=== PATIENT | male | born 1990 | race Caucasian/White ===

== ENCOUNTER 2018-07-23 13:28 | Emergency (ER) | payer OTHER, MEDICAID ==
[2018-07-23] MEDS ORDERED: TDAP ADULT 0.5 ML INJ (BOOSTRIX) IM ONE (13:50)
--- NOTE | 2018-07-23 13:52 | EDPHY ---
H & P Time Seen by Provider: 07/23/18 13:48 HPI/ROS: HPI: This is a 28-year-old male who presents with Chief Complaint: Workman's Comp. Splinter under right middle finger Location: Right middle finger Quality: Splinter Duration: Prior to arrival Signs and Symptoms: No bleeding, no radiation, no numbness, no weakness, no tingling, no incontinence, no decreased range of motion, no swelling, no pain, no fever Timing: Acute Severity: Mild Context: Patient is right-hand dominant, works at [employer], presents with accidentally getting a piece of bamboo 2 stuck under his right middle fingernail. Patient reports that he was unable to remove it. He reports mild discomfort when touching the area. Denies bleeding, radiation, weakness, decreased range of motion. Unsure of tetanus status. Modifying Factors: Attempt at removal but unsuccessful Comment: ROS: A comprehensive 10 system review of systems is otherwise negative aside from elements mentioned in the history of present illness. MEDICAL/SURGICAL/SOCIAL HISTORY: Medical history: Generally healthy. Does not take any regular medications. Surgical history: Denies Social history: Employed. Current every day smoker. CONSTITUTIONAL: Well-developed, well-nourished, adult white male, awake and alert, no obvious distress HEENT: Atraumatic and normocephalic. NECK: supple, no midline tenderness, flexion 45 degrees, extension 45 degrees, right and left lateral flexion 45 degrees. No meningismus. Cardiovascular: Normal S1/S2, regular rate, regular rhythm, without murmur rub or gallop. PULMONARY/CHEST: Symmetrical and nontender. Clear to auscultation bilaterally. Good air movement. No accessory muscle usage. ABDOMEN: Soft, nondistended, nontender. EXTREMITIES: 2/2 pulses, strength 5/5, right middle fingernail at the distal tip shows approximately 1 mm piece of bamboo; no bleeding. DIP/PIP/MCP flexion/ extension intact with good light touch sensation. no deformities, no clubbing, no cyanosis or edema. NEUROLOGICAL: no focal neuro deficits. GCS 15. Light touch sensation intact. SKIN: Warm and dry, well tattoos covering body, no erythema. no rash. Good capillary refill. Source: Patient Exam Limitations: No limitations Medical Decision Making Procedures: Procedure: Foreign body removal from under right middle fingernail. Anesthesia: None required After verbal consent was obtained, the bamboo splinter was removed from underneath the right middle fingernail. The foreign body was removed manually with forceps under direct visualization. There were no complications. The procedure was performed by myself. ED Course/Re-evaluation: Tetanus booster given. Splinter removed using forceps under direct visualization on 1st attempt. Copiously irrigated, bacitracin clean sterile dressing applied No signs of neurovascular compromise/tenting of skin/compartment syndrome/ extremities and joints examined above and below area of concern and are neurovascularly intact/cellulitis. This patient was seen under the supervision of my secondary supervising physician. I evaluated care for this patient independently. Differential Diagnosis: Differential diagnosis includes but is not limited to foreign body. Departure - Departure Disposition: Home, Routine, Self-Care Clinical Impression: Splinter in skin Condition: Good Instructions: Soft Tissue Foreign Body (ED) Additional Instructions: Keep the dressing dry and in place for 48 hours. After 48 hours, you may remove the dressing; wash the site daily with mild soap and water; then pat dry. Take Tylenol 650 mg every 4 hours and/or Ibuprofen 600 mg every 8 hours with food as needed for pain. Return to the ER immediately if you experience redness, red streaks, have fevers /chills, flu like symptoms, limited range of motion, or any other symptoms that concern you. Work Related Injury: Date of Injury (if different from Date of Service): [07/23/2018] Your work restrictions, if any, last only until the next business day. Formal evaluation for work restrictions beyond one day must be arranged through your employer's workman's compensation provider. Restrictions are noted below: Return to work today must keep dressing dry and in place times 48 hr.. Referrals: SHAVON BLACK [Primary Care Provider] - Follow Up Only If Needed Stand Alone Forms: Work Comp Follow Up
[2018-07-23 13:54] VITALS: BP 129/77
== END 2018-07-23 14:21 | disposition home or self-care (01) ==
DX: S60.452A Superficial foreign body of right middle finger, initial encounter (principal); Z23 Encounter for immunization; X58.XXXA Exposure to other specified factors, initial encounter; Y99.0 Civilian activity done for income or pay; Y92.512 Supermarket, store or market as the place of occurrence of the external cause; Y93.89 Activity, other specified